=== PATIENT | female | born 1965 | race African-American/Black ===

== ENCOUNTER 2017-09-28 11:48 | Emergency (ER) | payer MEDICAID, OTHER ==
[~2017-09-28] VITALS: Ht 157.5 cm; Wt 86.2 kg
[2017-09-28] MEDS ORDERED: FLUT9.9S NS (12:23)
[2017-09-28] MEDS ORDERED: PROAIR (12:23)
[2017-09-28] MEDS ORDERED: ALBU18HF2 IH (12:23)
[2017-09-28] MEDS ORDERED: KETOROLAC 30MG/ML VIAL IV STA (12:40)
[2017-09-28] MEDS ORDERED: SODIUM CHLORIDE 0.9% 1,000 ML IV ONE (12:40)
[2017-09-28] MEDS ORDERED: CYCLOBENZAPRINE 10MG TABLET PO ONE (12:45)
[2017-09-28] MEDS ORDERED: KETOROLAC 60MG/2ML VIAL IM ONE (13:00)
[2017-09-28 13:14] LABS: BASOPHILS % 0.6 % (0.0-2.0); EOSINOPHILS % 0.2 % (0.0-5.0); HEMATOCRIT. 39.5 % (36.0-48.0); HEMOGLOBIN. 12.6 g/dL (12.0-16.0); LYMPHOCYTES % 13.7 % (20.0-50.0); MEAN CORPUSCULAR HEMOGLOBIN 26.4 pg (28.0-32.0); MEAN CORPUSCULAR VOLUME 82.6 fL (81.0-99.0); MONOCYTES % 4.5 % (2.0-8.0); PLATELET 291 x1000/uL (130-400); RED BLOOD CELL COUNT 4.78 mill/uL (4.2-5.4); RED CELL DISTRIBUTION WIDTH 13.5 % (11.6-14.6)
[2017-09-28 13:20] LABS: INR 1.1
[2017-09-28 13:25] LABS: CHLORIDE 106 mEq/L (98-107)
[2017-09-28] MEDS ORDERED: CLONIDINE 0.1MG TABLET PO ONE (14:45)
[2017-09-28 15:09] LABS: CLARITY URINE CLEAR (CLEAR); COLOR URINE YELLOW (YELLOW); KETONES URINE NEGATIVE (NEGATIVE); LEUKOCYTE ESTERASE URINE NEGATIVE (NEGATIVE); NITRITE URINE NEGATIVE (NEGATIVE); OCCULT BLOOD URINE NEGATIVE (NEGATIVE); PH URINE 6.5 (4.5-8.0); PROTEIN URINE NEGATIVE (NEGATIVE); SPECIFIC GRAVITY URINE 1.011 (1.005-1.030); UROBILINOGEN URINE 0.2 E.U./dL (0.2-1.0)
[2017-09-28 15:57] VITALS: BP 154/104
== END 2017-09-28 16:42 | disposition home or self-care (01) ==
LOC: ER 12:54
DX: M51.16 Intervertebral disc disorders with radiculopathy, lumbar region (principal); I16.0 Hypertensive urgency; I10 Essential (primary) hypertension; Z90.710 Acquired absence of both cervix and uterus; Z88.0 Allergy status to penicillin
CPT/HCPCS: 36415; 72131; 80053; 81003; 85025; 85610; 93005; 96372; 99285; J1885; J7030; Z7610